=== PATIENT | female | born 1950 | race Caucasian/White ===

== ENCOUNTER 2017-08-26 15:04 | Inpatient (IN) | payer OTHER, SELFPAY ==
[~2017-08-26] VITALS: Ht 162.6 cm; Wt 93.9 kg
[~2017-08-26 15:04] MED LIST: ASPIRIN325 PO; B COMPLEX # 11 EACH PO; BACTRIM DS TAB1 EACH PO; BUTALB-ACETAMI1 EACH PO; CARAFATE 1 GM TA1 G1 PO; CARISOPRODOL 3350 M1 PO; ESTRACE0.5 MG PO; FISH OIL 1,001000 M2 PO; FISH OIL 1,2001 EAC4 PO; HAWTHORN BERRI565 MG PO; HAWTHORN BERRY500 MG PO; HYDROCODONE-AP1 EAC6 PO; IBUPROFEN 200200 M1 PO; IRON325 PO; LEVOTHROID100 MC1 PO; LEVOTHYROXIN0.112 M1 PO; LEVOTHYROXINE 0.1 MG PO; MOBIC15 MG PO; MULTI VITAMIN1 EACH PO; NEURONTIN 300300 M1 PO; NORCO 5-325 TA1 EAC1 PO; NORCO 5-325 TA1 EACH PO; ONDANSETRON HCL4 M2 PO; OXYCODONE HCL 55 MG PO; PRILOSEC20 MG PO; PROGESTERONE100 MG PO; UNISOM SLEEP AI25 MG PO; VENTOLIN HFA 1818 GM INH; VITAMIN D5000 UNIT PO; XANAX 0.5 MG0.5 MG PO; XARELTO10 MG PO; ZOLOFT50 MG PO
[2017-08-26 15:06] VITALS: BP 135/59
[2017-08-26] MEDS ORDERED: TIROSINT125 MCG PO (15:25)
[2017-08-26] MEDS ORDERED: ASPIR 8181 M1 PO (15:27)
[2017-08-26 15:28] LABS: ABSOLUTE BASOPHILS 0.1 thou/uL (0.0-0.2); ABSOLUTE EOSINOPHILS 0.2 thou/uL (0.0-0.7); ABSOLUTE MONOCYTES 0.6 thou/uL (0.0-1.2); ABSOLUTE NEUTROPHILS 1.9 thou/uL (1.6-8.1); BASOPHILS 1.2 %; EOSINOPHILS 4.1 %; HEMOGLOBIN 12.8 gm/dL (12.0-15.0); LYMPHOCYTES 42.2 %; MCH 29.3 pg (26.0-34.0); MCHC 33.7 g/dL (28.0-37.0); MCV 86.8 fL (80.0-100.0); MONOCYTES 12.3 %; NUCLEATED RBCS 0 /100WBC; PLATELET COUNT* 274 thou/uL (150-400); POLYS 40.2 %; RBC 4.37 mil/uL (4.20-5.00); RDW-CV 14.1 % (10.5-14.5); WBC 4.7 thou/uL (4.0-11.0)
[2017-08-26] MEDS ORDERED: TURMERIC500 M2 PO (15:28)
[2017-08-26 15:37] LABS: ANION GAP 5 mmol/L (7-16); BUN 14 mg/dL (7-18); CALCIUM 8.6 mg/dL (8.5-10.1); CHLORIDE 108 mmol/L (98-107); CO2 31 mmol/L (21-32); CREATININE 0.8 mg/dL (0.6-1.3); GLUCOSE 84 mg/dL (70-99); POTASSIUM 3.8 mmol/L (3.5-5.1); SODIUM 144 mmol/L (136-145)
[2017-08-26 15:39] LABS: APTT 25.4 Seconds (25.0-31.3); PROTIME 10.1 Seconds (9.20-11.50)
[2017-08-26 15:52] LABS: ALBUMIN 3.5 g/dL (3.4-5.0); ALKALINE PHOSPHATASE 90 U/L (46-116); LIPASE 166 U/L (73-393); MAGNESIUM 2.1 mg/dL (1.8-2.4); NT-PRO BRAIN NAT PEPTIDE 153 pg/mL (<300); SGOT 22 U/L (15-37); SGPT 25 U/L (30-65); TOTAL BILIRUBIN 0.3 mg/dL (<0.1-1.0); TOTAL PROTEIN 6.9 g/dL (6.4-8.2); TROPONIN-I LEVEL <0.06 ng/mL (<0.06)
[2017-08-26 20:00] VITALS: BP 116/62
[2017-08-26 20:20] VITALS: BP 125/72
[2017-08-27] VITALS: BP 99/49
[2017-08-27 03:30] VITALS: BP 152/78
[2017-08-27 03:47] LABS: INFLUENZA A ANTIGEN None Detected (None Detect); INFLUENZA B ANTIGEN None Detected (None Detect)
[2017-08-27 03:52] LABS: HEMATOCRIT 36.7 % (37.0-47.0); HEMOGLOBIN 12.5 gm/dL (12.0-15.0); MCH 29.3 pg (26.0-34.0); MCHC 34.2 g/dL (28.0-37.0); MCV 85.8 fL (80.0-100.0); MPV 7.3 fl. (7.2-11.1); RBC 4.27 mil/uL (4.20-5.00); RDW-CV 14.3 % (10.5-14.5); WBC 6.7 thou/uL (4.0-11.0)
[2017-08-27 04:04] LABS: ALBUMIN 3.5 g/dL (3.4-5.0); CALCIUM 8.3 mg/dL (8.5-10.1); CREATININE 0.8 mg/dL (0.6-1.3); POTASSIUM 3.9 mmol/L (3.5-5.1); TOTAL BILIRUBIN 0.3 mg/dL (<0.1-1.0); TOTAL PROTEIN 6.4 g/dL (6.4-8.2)
[2017-08-27 09:00] VITALS: BP 133/72
[2017-08-27 12:00] VITALS: BP 116/50
--- NOTE | 2017-08-27 12:24 | EKG ---
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: Frank SEARS : 1950 Requested By: Davonte Hong Order Number: [id number] MD: Aureliano Zhang Measurements Intervals [place] Rate: 63 P: 49 OR: 160 QRS: 6 QRSD: 86 T: 12 QT: 402 QTc: 412 Interpretive Statements Sinus rhythm Nonspecific ST segment depression Compared to ECG 09/20/2016 12:52:56 No significant changes Electronically Signed On 08-27-2017 12:23:46 CLOTHING ROOM SUPERVISOR by Aureliano Zhang [email or web address] <ELECTRONICALLY SIGNED> By: Aureliano Zhang MD, [facility] 08/27/17 1223 1509 1509 Aureliano Zhang MD, FAC /EPI
[2017-08-27 16:00] VITALS: BP 118/63
[2017-08-27 20:00] VITALS: BP 94/38
[2017-08-28] VITALS: BP 115/56
[2017-08-28 03:49] VITALS: BP 111/54
[2017-08-28 05:23] LABS: HEMOGLOBIN 11.3 gm/dL (12.0-15.0); MCH 29.4 pg (26.0-34.0); MCHC 34.3 g/dL (28.0-37.0); MCV 85.7 fL (80.0-100.0); MPV 7.5 fl. (7.2-11.1); RBC 3.86 mil/uL (4.20-5.00); RDW-CV 14.1 % (10.5-14.5); WBC 5.2 thou/uL (4.0-11.0)
[2017-08-28 05:49] LABS: TROPONIN-I LEVEL 0.1 ng/mL (<0.06)
[2017-08-28 08:36] VITALS: BP 142/66
[2017-08-28 12:00] VITALS: BP 133/65
[2017-08-28 12:39] VITALS: BP 133/65
--- NOTE | 2017-08-29 12:38 | CON ---
[address] [address] CONSULTATION Name: YOVANA BROWN Room: [address] IN M.R.#: [id number] Admission: 08/26/17 Attend Phys: Magdaleno Castro, Discharge: 08/28/17 Date of : 46 Report #: [id number] THIS REPORT FOR: //name// CC: Randi Castro DATE OF SERVICE: 08/28/2017 HISTORY OF PRESENT ILLNESS: The patient is a 67-year-old white female who I was asked to see in the hospital today after she complained of fatigue. The patient has had multiple hospitalizations here at [place]. She initially presented in August 2012, with chest pain. She underwent a stress echocardiogram chest discomfort. Dr. Zhang saw her and performed a cardiac catheterization that showed normal coronary arteries with no significant atherosclerosis. No ventriculogram was performed. She has been followed by Dr. Zhang since that time in September 2016, she underwent a dobutamine stress echocardiogram that showed normal ejection fraction with no evidence of ischemia. The patient states she does try to stay active and has a treadmill at home that she works out on. 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 She was doing well until 2 days ago, she woke up and after breakfast felt extremely fatigued and her arms were heavy. She laid back in bed. She did note some heaviness in her chest. An ambulance was called, she was brought here to [place] and admitted. She denied any recent fever, cough, bleeding, vomiting, or diarrhea. She denies any recent shortness of breath, palpitations, or syncope. PAST MEDICAL HISTORY: Significant for ankle fracture, cholecystectomy, hyperlipidemia, depression, and anxiety. No history of hypertension or diabetes. MEDICATIONS: Consist of Xanax, aspirin, Synthroid, and Zoloft. ALLERGIES: She has an intolerance to AMOXICILLIN. FAMILY HISTORY: Her father had bypass surgery. SOCIAL HISTORY: She is , although her does drive, they live in [place]. She quit smoking years ago. No alcohol abuse. REVIEW OF SYSTEMS: She has had no history of stroke, asthma, peptic ulcer disease, liver disease, kidney disease or cancer. She has never seen a psychiatrist. She wears glasses. No skin problems. PHYSICAL EXAMINATION: GENERAL: Revealed an elderly female, lying in bed. [place] [address] CONSULTATION Name: YOVANA BROWN Neymar Room: [address] IN [facility]#: [id number] Admission: 08/26/17 Attend Phys: Magdaleno Csatro, Discharge: 08/28/17 Date of : 46 Report #: [id number] VITAL SIGNS: She had blood pressure of 120/60, pulse 70. She is afebrile. HEENT: She was anicteric, conjunctivae are pink. Mucous membranes are moist. NECK: Veins nondistended. No carotid bruits. Neck supple. CHEST: Clear to auscultation. HEART: Regular rate and rhythm without murmur. ABDOMEN: Soft, nontender. EXTREMITIES: Had no edema. Dorsalis pedis pulse 2+ bilaterally. SKIN: Warm and dry. NEUROLOGIC: Nonfocal. LYMPH: No adenopathy. MUSCULOSKELETAL: No joint effusion. Her ECG on admission showed a sinus rhythm, nonspecific ST-segment changes. Her workup since she has been here, sodium 143, creatinine 0.8. Liver function studies were normal. Troponin 0.1. TSH is 0.04, T4 1.3. White blood cell count 5.2, hemoglobin 11.3. IMPRESSION AND RECOMMENDATIONS: 1. Chest heaviness. Atypical for angina. Borderline troponin. Symptoms atypical for angina. The patient had a previous normal catheterization 5 years ago, normal stress echocardiogram 10 months ago. Recommend no further cardiac evaluation. 2. Fatigue. Reason unclear. Possible related to anemia. 3. Anemia. No history of bleeding. 4. History of anxiety and depression. <ELECTRONICALLY SIGNED> By: William Denise MD, FACC 08/29/17 1238 1040 [id number] Denise MD, FACC /nt
== END 2017-08-28 14:10 | disposition home or self-care (01) | DRG 206 ==
LOC: M.ERS 15:04 → M.TBA-ER 16:34 → M.2W 16:34
PROVIDERS: Emergency Medicine Emergency Medical Services; ADMIT Family Medicine
DX: M94.0 Chondrocostal junction syndrome [Tietze] (principal); E78.5 Hyperlipidemia, unspecified; E03.9 Hypothyroidism, unspecified; F32.9 Major depressive disorder, single episode, unspecified; F43.9 Reaction to severe stress, unspecified; F41.9 Anxiety disorder, unspecified; K56.41 Fecal impaction; D64.9 Anemia, unspecified; Z86.711 Personal history of pulmonary embolism; Z87.81 Personal history of (healed) traumatic fracture; Z90.49 Acquired absence of other specified parts of digestive tract; Z79.82 Long term (current) use of aspirin; Z79.899 Other long term (current) drug therapy; Z88.1 Allergy status to other antibiotic agents; Z88.8 Allergy status to other drugs, medicaments and biological substances; Z82.49 Family history of ischemic heart disease and other diseases of the circulatory system

== ENCOUNTER → 2017-12-29 | Outpatient (CLI) | payer OTHER ==
[~2017-12-29] MED LIST changes: +ASPIR 8181 M1 PO; +TIROSINT125 MCG PO; +TURMERIC500 M2 PO
--- NOTE | 2018-01-09 11:50 | SLEEP ---
[address] [address] SLEEP STUDY REPORT Name: YOVANA BROWN Room: [facility]#: [id number] Admission: 12/29/17 Attend Phys: Randi Darden MD Discharge: Date of : 46 Report #: [id number] THIS REPORT FOR: //name// CC: Randi Darden This study has been reviewed in its entirety by a board certified sleep specialist DATE OF SERVICE: 12/29/2017 REQUESTING PHYSICIAN: Randi Darden MD Polysomnography was performed. Study was done for complaints of difficulty getting to sleep. She has complaints of restless legs and daytime sleepiness. Her [place] Sleepiness Scale was 11/24. Weight is 205 pounds with a BMI of 35.2. Total study time was 431 minutes. Total sleep time 352 minutes. Sleep efficiency was 82%. 10% of the time was spent in REM sleep. During the study, there was one central apnea and three obstructive apneas. There were 21 hypopneas. This resulted in apnea-hypopnea index of 4.3 total. During REM sleep, apnea-hypopnea index was 5.1. She slept in the supine and left lateral position. There were a total of 308 periodic limb movements noted. This resulted in a PLMS index of 52.5. Nineteen were associated with an arousal resulting in a PLMS arousal index of 3.2. Some minor snoring was noted. O2 saturations remained greater than 90%. IMPRESSION: 1. A polysomnography reveals only minimal obstructive sleep apnea. Apnea-hypopnea index total was ____. Split study was not performed due to lack of qualifying events. 2. Large number of periodic limb movements. RECOMMENDATIONS: Consider more aggressive treatment of periodic limb movement disorder. This may help improve sleep quality. <ELECTRONICALLY SIGNED> By: Lexy Scott MD 01/09/18 1150 1023 1045Lexy Scott MD /nt
== END ==
LOC: M.SLEEPLAB 12-26 21:00
DX: G47.33 Obstructive sleep apnea (adult) (pediatric) (principal)

== ENCOUNTER → 2018-02-21 | Outpatient (CLI) | payer OTHER | LOC: M.RAD 12:49 | DX: R06.02 Shortness of breath (principal); R05 Cough; E03.9 Hypothyroidism, unspecified; E78.5 Hyperlipidemia, unspecified ==

== ENCOUNTER 2019-01-04 13:33 | Emergency (ER) | payer OTHER ==
[~2019-01-04] VITALS: Ht 162.6 cm; Wt 90.7 kg
[2019-01-04] MEDS ORDERED: BREO ELLIPTA 21 EACH INH (13:45)
[2019-01-04] MEDS ORDERED: VENTOLIN HFA 1818 GM INH (13:45)
[2019-01-04] MEDS ORDERED: CELEXA10 MG PO (13:45)
[2019-01-04] MEDS ORDERED: IBUPROFEN 800800 M1 PO ×2 (15:39→15:47)
[2019-01-04] MEDS ORDERED: ZANAFLEX4 MG PO (15:39)
[2019-01-04] MEDS ORDERED: LIORESAL 10 MG10 MG PO (15:47)
[2019-01-04 16:07] VITALS: BP 148/63
== END 2019-01-04 16:07 | disposition home or self-care (01) ==
LOC: M.ERS 13:33
DX: S16.1XXA Strain of muscle, fascia and tendon at neck level, initial encounter (principal); S29.012A Strain of muscle and tendon of back wall of thorax, initial encounter; S70.01XA Contusion of right hip, initial encounter; S20.211A Contusion of right front wall of thorax, initial encounter; S00.83XA Contusion of other part of head, initial encounter; M25.511 Pain in right shoulder; E78.5 Hyperlipidemia, unspecified; E03.9 Hypothyroidism, unspecified; Z98.51 Tubal ligation status; Z90.49 Acquired absence of other specified parts of digestive tract; Z86.711 Personal history of pulmonary embolism; Z98.890 Other specified postprocedural states; W17.89XA Other fall from one level to another, initial encounter; Y93.89 Activity, other specified; Y92.89 Other specified places as the place of occurrence of the external cause; Y99.8 Other external cause status

== ENCOUNTER → 2019-11-27 | Outpatient (CLI) | payer OTHER ==
[~2019-11-27] MED LIST changes: +BREO ELLIPTA 21 EACH INH; +CELEXA10 MG PO; +IBUPROFEN 800800 M1 PO; +LIORESAL 10 MG10 MG PO; +ZANAFLEX4 MG PO
== END ==
LOC: M.RAD 11:18
DX: R05 Cough (principal)

== ENCOUNTER 2019-12-02 14:50 | Emergency (ER) | payer OTHER ==
[~2019-12-02] VITALS: Ht 162.6 cm; Wt 99.8 kg
[2019-12-02] MEDS ORDERED: OMEPRAZOLE40 MG PO (15:05)
[2019-12-02] MEDS ORDERED: NEURONTIN300 MG PO (15:06)
[2019-12-02] MEDS ORDERED: MILLIPRED DP5 MG PO (15:06)
[2019-12-02 16:25] LABS: URINE BLOOD NEGATIVE (Negative); URINE CLARITY CLEAR; URINE COLOR YELLOW; URINE GLUCOSE-RANDOM NEGATIVE (Negative); URINE KETONES NEGATIVE (Negative); URINE LEUKOCYTES-REFLEX 1+ (Negative); URINE NITRITE-REFLEX NEGATIVE (Negative); URINE PROTEIN TRACE (Negative); URINE SPECIFIC GRAVITY 1.025 (1.005-1.030); URINE UROBILINOGEN 0.2 E.U./dl (0.2-1.0)
[2019-12-02 16:33] LABS: ABSOLUTE BASOPHILS 0.1 thou/uL (0.0-0.2); ABSOLUTE EOSINOPHILS 0.1 thou/uL (0.0-0.7); ABSOLUTE LYMPHOCYTES 3.5 thou/uL (0.8-5.3); ABSOLUTE MONOCYTES 0.6 thou/uL (0.0-1.2); BASOPHILS 1.1 %; EOSINOPHILS 1.1 %; HEMATOCRIT 39.6 % (37.0-47.0); HEMOGLOBIN 13.5 gm/dL (12.0-15.0); LYMPHOCYTES 47.9 %; MCH 29.1 pg (26.0-34.0); MCHC 34.1 g/dL (28.0-37.0); MCV 85.2 fL (80.0-100.0); MONOCYTES 8.8 %; MPV 7.3 fl. (7.2-11.1); NUCLEATED RBCS 0 /100WBC; PLATELET COUNT* 243 thou/uL (150-400); POLYS 41.1 %; RBC 4.65 mil/uL (4.20-5.00); RDW-CV 14.2 % (10.5-14.5); WBC 7.2 thou/uL (4.0-11.0)
[2019-12-02 16:35] LABS: URINE BILIRUBIN 1+ (Negative)
[2019-12-02 16:36] LABS: ICTOTEST (BILI CONFIRMATORY) Negative (Negative)
[2019-12-02 16:40] LABS: CALCIUM 8.5 mg/dL (8.5-10.1); CREATININE 0.9 mg/dL (0.6-1.3); POTASSIUM 3.7 mmol/L (3.5-5.1)
[2019-12-02 16:44] LABS: ALBUMIN 3.4 g/dL (3.4-5.0); TOTAL BILIRUBIN 0.3 mg/dL (<0.1-1.0); TOTAL PROTEIN 6.7 g/dL (6.4-8.2)
[2019-12-02 16:51] LABS: BACTERIA-REFLEX >30 Many /HPF (None Seen); MUCUS >6 Heavy strn/LPF (None Seen); SQUAMOUS 4-10 Moderate /LPF (0-3); URINE RBC 0-2 Rare /HPF (0-2); URINE WBC-REFLEX 6-15 Few /HPF (0-5)
[2019-12-02 16:52] LABS: CALCIUM OXALATE 4-10 Moderate /LPF (None Seen); HYALINE CASTS >10 Many /LPF (None Seen)
[2019-12-02] MEDS ORDERED: MACROBID 100 M100 M1 PO (18:30)
[2019-12-02 19:02] VITALS: BP 127/60
--- NOTE | 2019-12-03 15:25 | EKG ---
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: [facility] : 1950 Requested By: Lizzy Gonzalez Order Number: [id number] Veronique MD: Aureliano Zhang Measurements Intervals [place] Rate: 58 P: 40 [place]: 165 QRS: -6 QRSD: 90 T: 4 QT: 401 QTc: 394 Interpretive Statements Sinus rhythm Borderline T abnormalities, diffuse leads Compared to ECG 08/26/2017 15:09:34 T-wave abnormality now present Electronically Signed On 12-03-2019 15:24:36 CDT by Aureliano Zhang [email or web address] <ELECTRONICALLY SIGNED> By: Aureliano Zhang MD, [facility] 12/03/19 1524 1507 1507 Aureliano Zhang MD, [facility] /EPI
== END 2019-12-02 19:03 | disposition home or self-care (01) ==
LOC: M.ERS 14:50
PROVIDERS: Personal Emergency Response Attendant
DX: N39.0 Urinary tract infection, site not specified (principal); R42 Dizziness and giddiness; R03.1 Nonspecific low blood-pressure reading; E78.5 Hyperlipidemia, unspecified; E03.9 Hypothyroidism, unspecified; J44.9 Chronic obstructive pulmonary disease, unspecified; G47.00 Insomnia, unspecified; Z88.1 Allergy status to other antibiotic agents; Z88.8 Allergy status to other drugs, medicaments and biological substances; Z79.82 Long term (current) use of aspirin; Z98.51 Tubal ligation status; Z90.49 Acquired absence of other specified parts of digestive tract

== ENCOUNTER → 2020-08-18 | Outpatient (CLI) | payer OTHER ==
[~2020-08-18] MED LIST changes: +MACROBID 100 M100 M1 PO; +MILLIPRED DP5 MG PO; +NEURONTIN300 MG PO; +OMEPRAZOLE40 MG PO
== END ==
LOC: M.CT 07:54
PROVIDERS: ATTEND Nurse Practitioner Family
DX: R31.29 Other microscopic hematuria (principal)

== ENCOUNTER → 2021-05-12 | Outpatient (CLI) | payer OTHER | LOC: M.RAD 14:39 | PROVIDERS: ATTEND Nurse Practitioner Family | DX: S46.912A Strain of unspecified muscle, fascia and tendon at shoulder and upper arm level, left arm, initial encounter (principal); M47.812 Spondylosis without myelopathy or radiculopathy, cervical region; M19.012 Primary osteoarthritis, left shoulder; X58.XXXA Exposure to other specified factors, initial encounter; Y93.89 Activity, other specified; Y92.89 Other specified places as the place of occurrence of the external cause; Y99.8 Other external cause status ==